=== PATIENT | male | born 2000 | race Asian ===

== ENCOUNTER 2023-10-15 11:40 | Emergency (ER) | payer BC ==
[~2023-10-15] VITALS: Ht 170.2 cm; Wt 65.8 kg
[2023-10-15] MEDS ORDERED: ZOLOFT100 MG PO (11:49)
[2023-10-15 12:51] LABS: HEMATOCRIT 49.9 % (39.0-48.0); HEMOGLOBIN 16.8 g/dL (13-16.00); MEAN CELL VOLUME 86.6 fL (80.0-100.00); MEAN CORPUSCULAR HEMOGLOBIN 29.1 pg (27.00-32.0); MEAN CORPUSCULAR HGB CONC 33.6 g/dl (32.0-36.0); RED BLOOD COUNT 5.77 M/uL (4.00-6.00); RED CELL DISTRIBUTION WIDTH 13.5 % (11.5-14.5)
[2023-10-15 13:01] LABS: PLATELET COUNT 97 K/uL (150-450)
[2023-10-15 13:16] LABS: CALCIUM 9.3 mg/dL (8.5-10.1); CREATININE SERUM 1.1 mg/dL (0.70-1.30); GFR 84.5; POTASSIUM 3.5 mEq/L (3.5-5.1)
== END 2023-10-15 21:21 | disposition home or self-care (01) ==
LOC: ER 11:40
PROVIDERS: General Practice
DX: K52.89 Other specified noninfective gastroenteritis and colitis (principal); A05.9 Bacterial foodborne intoxication, unspecified; E86.0 Dehydration; D69.6 Thrombocytopenia, unspecified; Z88.8 Allergy status to other drugs, medicaments and biological substances